=== PATIENT | male | born 1950 | race Caucasian/White ===

== ENCOUNTER → 2017-07-20 | Outpatient (CLI) | payer OTHER, BC ==
[2017-07-20 10:03] LABS: BLOOD UREA NITROGEN 18 mg/dl (7-18); CREATININE 1.08 mg/dl (0.60-1.40)
== END | disposition home or self-care (01) ==
LOC: C.LAB 08:23
PROVIDERS: ATTEND Podiatrist Foot & Ankle Surgery
DX: Z01.818 Encounter for other preprocedural examination (principal)

== ENCOUNTER → 2017-07-27 | Outpatient (CLI) | payer OTHER, BC ==
[2017-07-27 09:46] LABS: BLOOD UREA NITROGEN 16 mg/dl (7-18); CREATININE 1.04 mg/dl (0.60-1.40)
== END | disposition home or self-care (01) ==
LOC: C.LAB 07:51
PROVIDERS: ATTEND Podiatrist Foot & Ankle Surgery
DX: N28.9 Disorder of kidney and ureter, unspecified (principal)

== ENCOUNTER → 2017-07-29 | Outpatient (CLI) | payer OTHER, BC ==
[~2017-07-29] MED LIST: GADAVIST IV PRN
--- NOTE | 2017-07-29 11:10 | DIAGNOSTIC IMAGING REPORT ---
R LOWER EXT JOINT COMBO CLINICAL HISTORY: M19.171 pain TECHNIQUE: Multi axial MRI acquisition COMPARISON STUDY: None FINDINGS: Signal characteristics of all major osseous structures are unremarkable. There are minimal degenerative changes of the articular services of the intertarsal as well as tarsometatarsal regions. No significant loss of articular surface is appreciated. Subtalar joint is intact. The interosseous ligament is intact. There is trace amount of edema adjacent to the peroneal is also a trace amount of edema adjacent to the posterior tibial tendon. Tendon. All remaining tendons and ligaments are intact. Structures the plantar fascia are unremarkable. Medial and lateral collateral ligament complexes are intact. IMPRESSION: 1. Findings of a minimal tendinopathy of the posterior tibial tendinous complexes, as well as the peroneal tendon complex. 2. No evidence for ligamentous disruption or tear. 3. Minimal degenerative change of the articular services of the intertarsal as well as tarsometatarsal joint regions. The above report was generated using voice recognition software. It may contain grammatical, syntax or spelling errors. Electronically signed by: Eric Mckeon M.D. 07/29/2017 11:09 AM Dictated Date/Time: 07/29/2017 11:01 AM
== END | disposition home or self-care (01) ==
LOC: C.MRI 09:29
PROVIDERS: ATTEND Podiatrist Foot & Ankle Surgery
DX: M19.171 Post-traumatic osteoarthritis, right ankle and foot (principal)